=== PATIENT | female | born 1985 | race Caucasian/White ===

== ENCOUNTER 2020-12-29 16:10 | Inpatient (IN) | payer OTHER ==
[2020-12-29 16:53] LABS: #Eosinphils 0.1 thou/uL (0.0-0.7); #Lymphocytes 1.2 thou/uL (1.20-3.40); #Monocytes 0.2 thou/uL (0.11-0.59); #Neutrophils 1.6 thou/uL (1.40-6.50); %Basophils 0.7 % (0.0-1.0); %Eosinophils 3.3 % (0.0-10.0); %Lymphocytes 38.3 % (21.0-51.0); %Monocytes 6.9 % (0.0-10.0); %Neutrophils 50.8 % (42.0-75.0); Hemoglobin 6.3 g/dL (12.0-16.0); Mean Corpuscular HGB CONC 28.4 g/dL (32.0-36.0); Mean Corpuscular Hemoglobin 17.6 pg (27.0-31.0); Mean Corpuscular Volume 62.1 fL (78.0-98.0); Mean Platelet Volume 5.4 fL (7.4-10.4); Platelet Count 197 thou/uL (130-400); RBC Distribution Width 17.2 % (11.5-14.5); Red Blood Cell (RBC) Count 3.55 mill/uL (4.20-5.40); White Blood Cell (WBC) Count 3.1 thou/uL (4.8-10.8)
[2020-12-29 17:14] LABS: ALT (SGPT) 9 U/L (8-55); AST (SGOT) 14 U/L (5-34); Albumin 4.1 g/dL (3.5-5.0); Alkaline Phosphatase 44 U/L (40-110); Anion Gap 13 mmol/L (10-20); BUN (Urea Nitrogen) 9 mg/dL (7.0-18.7); Bilirubin, Total 1.2 mg/dL (0.2-1.2); Calc. Creatinine Clearance 0 mL/min (70-130); Calcium 8.6 mg/dL (7.8-10.44); Carbon Dioxide 23 mmol/L (22-29); Chloride 110 mmol/L (98-107); Globulin 2.5 g/dL (2.4-3.5); Glucose 80 mg/dL (70-105); Protein, Total 6.6 g/dL (6.0-8.3); Sodium 142 mmol/L (136-145)
[2020-12-29 17:27] LABS: BHCG - Serum Negative (NEGATIVE); Pregs Control Background? CLEAR/WHITE (CLR/WHITE); Pregs Control Bar Appear? YES (CONTROL BAR)
[2020-12-29 17:58] LABS: Thyroid Stimulating Hormone 1.9103 uIU/mL (0.35-4.94)
[2020-12-29] MEDS ORDERED: Calcium Carbonate 500 MG ChewTAB PO PRN (18:07)
[2020-12-29] MEDS ORDERED: Acetaminophen 325 MG TAB PO PRN (18:07)
[2020-12-29] MEDS ORDERED: Senokot S 8.6-50 MG TAB PO PRN (18:07)
[2020-12-29] MEDS ORDERED: Ondansetron ODT 4 MG TAB PO PRN (18:07)
[2020-12-29] MEDS ORDERED: Ondansetron PF 4 MG/2 ML Vial IVP PRN (18:07)
[2020-12-29 18:39] LABS: Phosphorus 3.6 mg/dL (2.3-4.7)
[2020-12-29] MEDS ORDERED: Cyanocobalamin 1000 MCG/ML VIAL IM SCH (19:00)
[2020-12-29 20:14] VITALS: BMI 26.4
[2020-12-29] MEDS ORDERED: Multivit, Therapeutic 1 TAB PO SCH (21:00)
[2020-12-29] MEDS ORDERED: Iron, Sodium Ferric Gluconate 250 MG in Sodium Chloride 0.9% 250 ML 250 ML IVPB SCH (21:00)
[2020-12-29 22:17] LABS: Hemoglobin 6.5 g/dL (12.0-16.0)
[2020-12-30 03:55] LABS: SARS-CoV-2 PCR by NAA Not Detected (NotDetected)
[2020-12-30 06:19] LABS: Eosinophils 4 % (0-10); Lymphocytes 49 % (21-51); MDiff Complete? YES; Monocytes 7 % (0-10); Neutrophil 40 % (42-75); Platelet Morphology Comment Appears Adequate
[2020-12-30 06:20] LABS: Hemoglobin 7.6 g/dL (12.0-16.0); Mean Corpuscular HGB CONC 30.3 g/dL (32.0-36.0); Mean Corpuscular Hemoglobin 20.1 pg (27.0-31.0); Mean Corpuscular Volume 66.2 fL (78.0-98.0); Mean Platelet Volume 5.6 fL (7.4-10.4); Platelet Count 171 thou/uL (130-400); RBC Distribution Width 20.5 % (11.5-14.5); Red Blood Cell (RBC) Count 3.77 mill/uL (4.20-5.40); White Blood Cell (WBC) Count 3.4 thou/uL (4.8-10.8)
[2020-12-30] MEDS ORDERED: Calcium Carbonate 600 MG + Vit D TAB PO SCH (08:00)
[2020-12-30] MEDS ORDERED: Folic Acid 1 MG TAB PO SCH (09:00)
[2020-12-30] MEDS ORDERED: Thiamine 100 MG TAB PO SCH (09:00)
[2020-12-30] MEDS ORDERED: Cyanocobalamin (Vitamin B-12) 1,000 MCG TAB PO SCH (09:00)
[2020-12-30] MEDS ORDERED: Ascorbic Acid 500 mg Chewable Tablet PO SCH (09:00)
[2020-12-30 09:05] VITALS: TEMP 98.3
[2020-12-30 13:20] VITALS: BP 128/75
[2021-01-05] MEDS ORDERED: Ergocalciferol 1.25 MG(50,000 UNITS) CAP PO SCH (09:00)
== END 2020-12-30 13:19 | disposition home or self-care (01) | DRG 812 ==
LOC: ERS 16:10 → T4-B 18:11 → OBSVTOIN 18:11
PROVIDERS: ADMIT Internal Medicine; ATTEND Family Medicine
PROC: 30233N1 Transfusion of Nonautologous Red Blood Cells into Peripheral Vein, Percutaneous Approach (ICD-10-PCS; principal; 2020-12-29)
DX: D50.9 Iron deficiency anemia, unspecified (principal); E53.8 Deficiency of other specified B group vitamins; E55.9 Vitamin D deficiency, unspecified; G43.909 Migraine, unspecified, not intractable, without status migrainosus; E34.9 Endocrine disorder, unspecified; F41.9 Anxiety disorder, unspecified; F32.9 Major depressive disorder, single episode, unspecified; Z88.0 Allergy status to penicillin; Z88.2 Allergy status to sulfonamides; Z98.84 Bariatric surgery status
CPT/HCPCS: 36415; 36430; 80053; 80061; 82306; 82607; 82728; 82746; 83540; 83550; 83735; 83970; 84100; 84207; 84425; 84443; 84446; 84484; 84590; 84597; 84630; 84703; 85007; 85025; 85027; 85060; 86850; 86900; 86901; 87635; 93005; 94760; J2916; J3420; J7050; P9016; Q0162; U0003; U0005